=== PATIENT | male | born 1945 | race Caucasian/White ===

== ENCOUNTER 2017-01-23 10:33 | Inpatient (IN) | payer OTHER, MEDICARE ==
[~2017-01-23] VITALS: Ht 167.6 cm; Wt 88.0 kg
[2017-01-23 10:54] VITALS: BP 172/83; PULSE 64; RESP 21; TEMP 98.6; O2SAT 100
[2017-01-23] MEDS ORDERED: SODIUM CHLORIDE 0.9% FLUSH 10 ML FLUSH IVF PRN (11:15)
[2017-01-23] MEDS ORDERED: SODIUM CHLORID 0.9% 500 ML INJ 500 ML IV ONE (11:15)
[2017-01-23] MEDS ORDERED: TETANUS/DIPHTHERIA TOXOID ADULT 0.5 ML VIAL IM ONE (11:15)
[2017-01-23] MEDS ORDERED: ceFAZolin 2 GM PREMIX 50 ML IV ONE (11:15)
[2017-01-23 11:20] VITALS: O2SAT 100
[2017-01-23 11:42] LABS: I-STAT POTASSIUM 4.1 MMOL/L (3.5-4.9)
[2017-01-23] MEDS ORDERED: HYDROmorphone HCL PF 1 MG/ML VIAL IV PUSH ONE (11:45)
[2017-01-23 11:54] LABS: BICARBONATE 25.7 MEQ/L (21.0-32.0); POTASSIUM 4.1 MEQ/L (3.5-5.1)
[2017-01-23 12:06] LABS: AUTOMATED NEUTROPHIL # 8.5 TH/MM3 (1.8-7.7); BASOPHIL % 0.5 % (0.0-2.0); EOSINOPHIL # 0.1 TH/MM3 (0-0.4); EOSINOPHIL % 1.1 % (0.0-4.0); HEMATOCRIT 42.2 % (39.0-51.0); HEMO FLAGS DIFF FINAL; LYMPH % 8.6 % (9.0-44.0); LYMPHOCYTE # 0.9 TH/MM3 (1.0-4.8); MEAN CELL VOLUME 85.1 FL (80.0-100.0); MEAN CORPUSCULAR HGB CONC 34.1 % (32.0-36.0); MONO % 5.6 % (0.0-8.0); NEUT % 84.2 % (16.0-70.0); PLATELET COUNT 166 TH/MM3 (150-450); RED BLOOD COUNT 4.96 MIL/MM3 (4.50-5.90)
[2017-01-23 12:16] LABS: APTT (PATIENT) 27.5 SEC (24.3-30.1); PROTHROMBIN TIME - PATIENT 11.6 SEC (9.8-11.6)
[2017-01-23 12:19] LABS: BACTERIA, URINE RARE /hpf; BLOOD, URINE TRACE (NEG); GLUCOSE,URINE NEG (NEG); KETONE, URINE NEG (NEG); NITRITE,URINE NEG (NEG); TRANSITIONAL EPI CELLS, URINE <1 /hpf; URINE COLOR YELLOW (YELLW/STRAW)
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
[2017-01-23 12:29] LABS: COMMENT (UR) CULTURE INDICATED; CULTURE IF INDICATED CULTURE INDICATED
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
[2017-01-23 12:36] VITALS: BP 174/75; PULSE 61; RESP 21; O2SAT 98
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
[2017-01-23] MEDS ORDERED: LIDOCAINE HCL 1% 50 ML VIAL INFIL ONE (12:45)
[2017-01-23] MEDS ORDERED: BUPIVACAINE HCL PF 0.5% 10 ML VIAL INFIL ONE (12:45)
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
[2017-01-23] MEDS ORDERED: SODIUM CHLORIDE 0.9% FLUSH 10 ML FLUSH IV FLUSH PRN (14:00)
[2017-01-23] MEDS: DOCUSATE SODIUM 100 MG/10 ML UDC PO SCH ×2 (14:00→21:03)
[2017-01-23] MEDS ORDERED: ONDANSETRON HCL 4 MG/2 ML VIAL IV PRN (14:00)
[2017-01-23] MEDS ORDERED: CHLORHEXIDINE GLUCONATE 2 % 1 PACK (2 CLOTHS) TOP PRN (14:00)
[2017-01-23] MEDS ORDERED: ACETAMINOPHEN/HYDROcodone 325 MG/5 MG TAB PO PRN ×2 (14:00)
[2017-01-23] MEDS ORDERED: MISCELLANEOUS NURSING INFORMATION XX SCH (14:00)
[2017-01-23] MEDS ORDERED: KETOROLAC TROMETHAMINE 30 MG/ML (IVP) VIAL IVP SCH (14:00)
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
[2017-01-23] MEDS ORDERED: ENOXAPARIN SODIUM 30 MG/0.3 ML SYRINGE SQ SCH (15:00)
[2017-01-23] MEDS ORDERED: VIAG100T PO (15:31)
[2017-01-23] MEDS ORDERED: ASPI81TA81 PO (15:49)
[2017-01-23] MEDS ORDERED: SITA50 PO (15:49)
[2017-01-23 16:00] VITALS: BP 119/58; PULSE 57; RESP 18; O2SAT 96
[2017-01-23] MEDS: HEPARIN SODIUM - SQ 10,000 UNITS/ML VIAL SQ SCH (16:14)
[2017-01-23] MEDS ORDERED: LOSA25TA PO (16:20)
[2017-01-23] MEDS ORDERED: AMLO5TAB2 PO (16:20)
[2017-01-23] MEDS ORDERED: SERT-129 PO (16:20)
[2017-01-23] MEDS ORDERED: PRAV40TA2 PO (16:20)
[2017-01-23] MEDS ORDERED: HYDR12.56 PO (16:20)
[2017-01-23] MEDS ORDERED: TAMS0.4C4 PO (16:20)
[2017-01-23] MEDS ORDERED: ELOC0.1O TOPICAL (16:23)
[2017-01-23] MEDS: LACTATED RINGER'S 1000 ML INJ 1,000 ML IV SCH (17:33)
[2017-01-23 20:00] VITALS: BP 117/57; PULSE 58; RESP 18; TEMP 97.7; O2SAT 97
[2017-01-23] MEDS ORDERED: MAGNESIUM HYDROXIDE SUSP 30 ML CUP PO SCH (21:00)
[2017-01-23] MEDS: METHOCARBAMOL 500 MG TAB PO SCH (21:03)
[2017-01-23] MEDS: diphenhydrAMINE HCL 50 MG CAP PO PRN (21:03)
[2017-01-23] MEDS: FAMOTIDINE 20 MG TAB PO SCH (21:03)
[2017-01-23] MEDS: LIDOCAINE HCL 5% PATCH T-DERMAL SCH (21:04)
[2017-01-24] VITALS: BP 142/65; PULSE 55; RESP 18; TEMP 98.1; O2SAT 94
[2017-01-24] MEDS: diphenhydrAMINE HCL 50 MG CAP PO PRN ×2 (02:56→11:20)
[2017-01-24] MEDS: HEPARIN SODIUM - SQ 10,000 UNITS/ML VIAL SQ SCH ×2 (02:56→14:50)
[2017-01-24] MEDS: LACTATED RINGER'S 1000 ML INJ 1,000 ML IV SCH ×2 (02:57→14:05)
[2017-01-24 04:00] VITALS: BP 123/60; PULSE 56; RESP 18; TEMP 96.8; O2SAT 94
[2017-01-24] MEDS ORDERED: CHLORHEXIDINE GLUCONATE 2 % 1 PACK (2 CLOTHS) TOP SCH (04:00)
[2017-01-24] MEDS: METHOCARBAMOL 500 MG TAB PO SCH ×2 (05:08→13:28)
[2017-01-24] MEDS ORDERED: DOCU100S PO (07:29)
[2017-01-24] MEDS ORDERED: MILKSUS PO (07:29)
[2017-01-24 08:00] VITALS: BP 140/65; PULSE 54; RESP 16; TEMP 97.6; O2SAT 94
[2017-01-24] MEDS: FAMOTIDINE 20 MG TAB PO SCH (08:34)
[2017-01-24] MEDS: DOCUSATE SODIUM 100 MG/10 ML UDC PO SCH (08:34)
[2017-01-24 08:37] LABS: AUTOMATED NEUTROPHIL # 5.4 TH/MM3 (1.8-7.7); BASOPHIL # 0.1 TH/MM3 (0-0.2); BASOPHIL % 0.8 % (0.0-2.0); EOSINOPHIL # 0.1 TH/MM3 (0-0.4); EOSINOPHIL % 1.9 % (0.0-4.0); HEMATOCRIT 36.6 % (39.0-51.0); HEMO FLAGS DIFF FINAL; LYMPH % 17.3 % (9.0-44.0); LYMPHOCYTE # 1.3 TH/MM3 (1.0-4.8); MEAN CELL VOLUME 85.2 FL (80.0-100.0); MEAN CORPUSCULAR HEMOGLOBIN 29.8 PG (27.0-34.0); MONO % 7.4 % (0.0-8.0); NEUT % 72.6 % (16.0-70.0); PLATELET COUNT 151 TH/MM3 (150-450); RED BLOOD COUNT 4.29 MIL/MM3 (4.50-5.90); RED CELL DISTRIBUTION WIDTH 13.9 % (11.6-17.2); WHITE BLOOD COUNT 7.4 TH/MM3 (4.0-11.0)
[2017-01-24] MEDS ORDERED: ASPIRIN EC 81 MG TABEC PO SCH (09:00)
[2017-01-24] MEDS ORDERED: LOSARTAN 25 MG TAB PO SCH (09:00)
[2017-01-24] MEDS: LIDOCAINE HCL 5% PATCH T-DERMAL SCH (09:00)
[2017-01-24] MEDS ORDERED: TAMSULOSIN HCL 0.4 MG CAP PO SCH (09:00)
[2017-01-24] MEDS ORDERED: amLODIPine BESYLATE 5 MG TAB PO SCH (09:00)
[2017-01-24] MEDS ORDERED: HYDROCHLOROTHIAZIDE 12.5 MG CAP PO SCH (09:00)
[2017-01-24] MEDS ORDERED: SERTRALINE HCL 100 MG TAB PO SCH (09:00)
[2017-01-24 09:03] LABS: BICARBONATE 27.3 MEQ/L (21.0-32.0); POTASSIUM 3.8 MEQ/L (3.5-5.1)
--- NOTE | 2017-01-24 09:17 | RADRPT ---
EXAM DATE/TIME: 01/24/2017 08:42 [facility] COMPARISON: CT THORAX W/O CONTRAST, January 23, 2017, 12:14. INDICATIONS : Evaluate rib fracture. Short of breath MEDICAL HISTORY : None. SURGICAL HISTORY : None. ENCOUNTER: Initial ACUITY: 2 days PAIN SCORE: 3/10 LOCATION: Right chest FINDINGS: There is band like atelectasis in the right lung base and shallow lung volumes are noted. Right 10th posterior rib fracture is not clearly visualized on the current study. No obvious pneumothorax. Cardi omediastinal contour unremarkable. CONCLUSION: The right rib fractures not clearly seen. Chema Crook MD on January 24, 2017 at 9:15 Board Certified Radiologist. This report was verified electronically.
[2017-01-24] MEDS ORDERED: PILL SPLITTER OTHER PRN (11:30)
[2017-01-24 12:00] VITALS: BP 139/67; PULSE 58; RESP 18; TEMP 96.9; O2SAT 95
[2017-01-24 12:31] LABS: HEMATOCRIT 38.7 % (39.0-51.0); MEAN CELL VOLUME 86.6 FL (80.0-100.0); MEAN CORPUSCULAR HEMOGLOBIN 28.9 PG (27.0-34.0); MEAN CORPUSCULAR HGB CONC 33.4 % (32.0-36.0); PLATELET COUNT 140 TH/MM3 (150-450); RED BLOOD COUNT 4.47 MIL/MM3 (4.50-5.90); RED CELL DISTRIBUTION WIDTH 13.9 % (11.6-17.2); REVIEW FLAG FINAL; WHITE BLOOD COUNT 7.3 TH/MM3 (4.0-11.0)
[2017-01-24 12:59] LABS: ALKALINE PHOSPHATASE 48 U/L (45-117); ALT (GPT) 34 U/L (12-78); ANION GAP 7 MEQ/L (5-15); AST (GOT) 23 U/L (15-37); BICARBONATE 28.5 MEQ/L (21.0-32.0); BLOOD UREA NITROGEN 38 MG/DL (7-18); CHLORIDE 106 MEQ/L (98-107); GLOMERULAR FILTRATION RATE 32 ML/MIN (>89); POTASSIUM 3.6 MEQ/L (3.5-5.1); SODIUM (NA) 141 MEQ/L (136-145); TOTAL BILIRUBIN ADULT 0.7 MG/DL (0.2-1.0)
[2017-01-24] MEDS ORDERED: HYDR-3516 PO (14:33)
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
[2017-01-24] MEDS ORDERED: FAMOTIDINE 20 MG TAB PO SCH (21:00)
[2017-01-24] MEDS ORDERED: PRAVASTATIN SOD 40 MG TAB PO SCH (21:00)
== END 2017-01-24 16:28 | disposition home or self-care (01) | DRG 206 ==
LOC: NEPE 10:33 → NEDA 12:55 → N05A 16:58
PROVIDERS: ADMIT Surgery Trauma Surgery; ATTEND Surgery Trauma Surgery
PROC: 0HDFXZZ Extraction of Right Hand Skin, External Approach (ICD-10-PCS; principal; 2017-01-23)
PROC: 0HQFXZZ Repair Right Hand Skin, External Approach (ICD-10-PCS; 2017-01-23)
DX: S22.31XA Fracture of one rib, right side, initial encounter for closed fracture (principal); S32.028A Other fracture of second lumbar vertebra, initial encounter for closed fracture; E11.9 Type 2 diabetes mellitus without complications; V43.52XA Car driver injured in collision with other type car in traffic accident, initial encounter; Y92.410 Unspecified street and highway as the place of occurrence of the external cause; Y93.89 Activity, other specified; Y99.9 Unspecified external cause status; N28.9 Disorder of kidney and ureter, unspecified; S61.229A Laceration with foreign body of unspecified finger without damage to nail, initial encounter; Z79.84 Long term (current) use of oral hypoglycemic drugs; I10 Essential (primary) hypertension; E78.5 Hyperlipidemia, unspecified; Z88.5 Allergy status to narcotic agent; N40.0 Benign prostatic hyperplasia without lower urinary tract symptoms; R31.9 Hematuria, unspecified
CPT/HCPCS: 10120; 12001; 70450; 71010; 71250; 72125; 73130; 74176; 80048; 80053; 81001; 82435; 82565; 82947; 84132; 84295; 84520; 85025; 85027; 85610; 85730; 86850; 86900; 86901; 87086; 90471; 90714; 96374; 96375; J0690; J1170; J1644; J7040; J7120; Q0163